=== PATIENT | male | born 1990 | race Caucasian/White ===

== ENCOUNTER 2017-12-28 09:50 | Inpatient (IN) | payer SELFPAY ==
[2017-12-28] VITALS (11 sets, daily range): BP systolic 105–137; BP diastolic 55–78; PULSE 62–86; RESP 14–18; TEMP 36.2–37.4; O2SAT 96–100; BMI 24.4; BMI 27.1
--- NOTE | 2017-12-28 10:24 | RAD_ITS ---
STUDY: X-RAY - RIGHT KNEE REASON FOR EXAM: Male, 27 years old. Laceration injury. TECHNIQUE: 2 view(s) of the knee. COMPARISON: None. FINDINGS: Normal visualized distal femur. Normal visualized proximal tibia and fibula. Normal proximal tibiofibular articulation. Normal medial femorotibial compartment. Normal lateral femorotibial compartment. Normal patellofemoral articulation. There is evidence of a large laceration overlying the proximal medial portion of the tibia. Gas is seen within the medial knee joint as well as within the synovium. Joint effusion. RAD/Knee 1 or 2 Views IMPRESSION: Large laceration with tissue gap along the medial aspect of the proximal tibia. Gas is seen within the knee joint. Joint effusion. No radiopaque foreign body is seen. Electronically Signed: Santi Thomson MD at 10:46 EDT Tel [phone], Service support ,
[2017-12-28] MEDS: Diphth,Pertuss(Acell),Tet Vac 0.5 ML Vial IM (10:34)
[2017-12-28 11:10] LABS: Absolute Lymphocyte Count 1.25 X10^3/ul (0.83-4.51); Absolute Neutrophil Count 3.3 X10^3/uL (2.0-7.7); Basophil# 0.01 X10^3/uL; Basophil% 0.2 % (0-1); Eosinophil# 0.05 X10^3/uL; Hematocrit 42.6 % (40-54); Hemoglobin 14.7 g/dl (13.0-16.5); Lymphocyte # 1.25 X10^3/ul (4.0); Lymphocyte % 24.8 % (19-41); Mean Corp Hgb Conc 34.5 g/gl (32-36); Mean Corpuscular Hgb 29.6 pg (27.0-32.0); Mean Corpuscular Volume 85.9 fL (80-94); Mean Platelet Vol. 10.8 fl (6.2-12.0); Monocyte# 0.45 X10^3/uL; Monocyte% 8.9 % (0-10); Neutrophil # 3.28 X10^3/uL (2.7-7.7); Neutrophil % 64.9 % (47-70); POSITIVE COUNT NO; POSITIVE DIFFERENTIAL NO; POSITIVE MORPHOLOGY NO; Platelet Count 129 K/mm3 (150-450); RBC Distribution Width SD 37.7 fl (35.1-43.9); Red Blood Count 4.96 M/mm3 (4.6-6.2); White Blood Count 5.1 K/mm3 (4.4-11.0)
[2017-12-28 11:16] LABS: International Normalized Ratio 1.1; Prothrombin Time (Protime)PT. 14.6 SECONDS (11.7-14.9)
[2017-12-28 11:17] LABS: Partial Thromboplast Time 26.4 Seconds (24.1-36.2)
--- NOTE | 2017-12-28 11:18 | NURSING ---
DR ALFONSO FOR DR HAGAN
[2017-12-28 11:20] LABS: Anion Gap 8 (5-15); BUN 15 mg/dL (7-18); BUN/Creat Ratio 10.9 RATIO (10-20); Calcium,Total 8.7 mg/dL (8.5-10.1); Chloride 102 mmol/L (98-107); Creatinine, Serum 1.38 mg/dL (0.70-1.30); EST Glomerular Filtration Rate 65 mL/min (>60); Est Glom Filt Rate - Afr Amer 79 mL/min (>60); Estimated Creatinine Clearance 88.25 ml/min; Glucose 100 mg/dL (74-106); Potassium 3.9 mmol/L (3.5-5.1); Sodium Level 140 mmol/L (136-145)
--- NOTE | 2017-12-28 11:40 | ED.VISSUMM ---
- ER Visit Summary Date of Service: 12/28/17 Chief Complaint: Laceration History of Present Illness: The patient is a 27 M who cut his right leg just prior to arrival on a garage door panel. No other injuries or complaints. Unsure of tetanus status. Physical Examination: Patient has a large laceration to his right lower leg just distal and medial to the right knee. This is approximately 20 cm. Subcutaneous tissue was exposed. He is neurovascular intact distally. There is a concern for a knee joint capsule disruption medially. Test Results: X-rays of the knee show gas in the joint space. Emergency Department Course and Treatment: Tetanus was updated. Patient discussed with Dr. Moore and will go to the OR. Labs pending. Ancef ordered, but patient transferred to the OR prior to administration. Treatment Plan: As above Disposition: To operating room Impression: 1. Right leg laceration 20 cm approximately 2. Right knee joint laceration This note was generated with [employer] dictation software. It may contain incorrect words, spelling, and punctuation that were not noted in review of the chart prior to signing ED Disposition - Plan for ED Patient: Chief Complaint: Laceration
--- NOTE | 2017-12-28 11:44 | ED.DCSUM_ITS ---
- ER Visit Summary Date of Service: 12/28/17 Chief Complaint: Laceration History of Present Illness: The patient is a 27 M who cut his right leg just prior to arrival on a garage door panel. No other injuries or complaints. Unsure of tetanus status. Physical Examination: Patient has a large laceration to his right lower leg just distal and medial to the right knee. This is approximately 20 cm. Subcutaneous tissue was exposed. He is neurovascular intact distally. There is a concern for a knee joint capsule disruption medially. Test Results: X-rays of the knee show gas in the joint space. Emergency Department Course and Treatment: Tetanus was updated. Patient discussed with Dr. Moore and will go to the OR. Labs pending. Ancef ordered, but patient transferred to the OR prior to administration. Treatment Plan: As above Disposition: To operating room Impression: 1. Right leg laceration 20 cm approximately 2. Right knee joint laceration This note was generated with [employer] dictation software. It may contain incorrect words, spelling, and punctuation that were not noted in review of the chart prior to signing ED Disposition - Plan for ED Patient: Chief Complaint: Laceration
--- NOTE | 2017-12-28 11:50 | NURSING ---
OR KADEN Rod
[2017-12-28] MEDS: Cefazolin 2 GM in 0.9% Normal Saline 100 ML IV (12:52)
--- NOTE | 2017-12-28 13:03 | PCM.HP.STD ---
Problem List (1) Unspecified injury of left lower leg, initial encounter Status: Acute (2) Laceration of leg not thigh, right Status: Acute Qualifiers: Encounter type: initial encounter Qualified Code(s): S81.811A - Laceration without foreign body, right lower leg, initial encounter History of Present Illness Date of Admission: 12/28/17 The patient is a 27 year old M who tripped over a garage door panel and lacerated proximal medial tibia. Denies numbness, tingling; able to range toes and ankle without difficulty. denies fever, chills, or other constitutional symptoms. tetanus is up to date. did not receive antibiotics in ER as headed to OR for washout now. [] Past Medical History Allergies No Known Allergies Allergy (Verified 12/28/17 09:50) Home Medications: Ambulatory Orders Medication Instructions Recorded NK 12/28/17 Smoking Status: Never smoker Review of Systems Constitutional: Denies: Chills, Fever, Weight Change HEENT: Denies: Head Aches, Sinus Congestion, Sinus Drainage Cardiovascular: Denies: Chest Pain, Palpitations Respiratory: Denies: Cough, Shortness of breath at rest, Sputum production Gastrointestinal: Denies: Abdominal Pain, Nausea, Vomiting Genitourinary: Denies: Dysuria Musculoskeletal: Reports: Leg Pain. Denies: Joint Pain Skin: Denies: Rash, Wounds Neurological: Denies: Numbness, Tingling, Focal weakness Psychiatric: Denies: Anxiety, Depression, Homicidal Ideations, Suicidal Ideations Hematologic/ Lymphatic: Denies: Easy Bruising, Easy Bleeding VTE Information - Inpt Only VTE Present on Admission: Yes VTE Mechan Device Prophylaxis: SCD's VTE Pharm Prophylaxis ordered?: Yes Patient Problems: Active and Suspected Problems Unspecified injury of left lower leg, initial encounter (Acute) Laceration of leg not thigh, right (Acute) - Physical Exam General: Alert, Oriented x3, Cooperative HEENT: Atraumatic, PERRLA, EOMI, Normocephalic Neck: Supple, No JVD, Negative Carotid Bruits Lungs: Clear to auscultation, Normal air movement Cardiovascular: Regular rate, No murmurs Abdomen: Bowel Sounds Present, Soft, Non Tender Extremities: No edema, Capillary Refill Less than 3 Seconds Skin: Skin Tear - 20cm laceration to proximal medial tibia Musculoskeletal: Tenderness Neurological: Cranial nerves II-XII grossly intact Psych/Mental Status: Normal Affect, Appropriate Vital Signs Temp Pulse Resp BP Pulse Ox 97.2 F L 68 16 137/78 H 99 12/28/17 11:53 12/28/17 11:53 12/28/17 11:53 12/28/17 11:53 12/28/17 11:53 Oxygen Delivery Method Room Air Weight: 180 lb Body Mass Index (BMI) 24.4 Laboratory Tests Past 24 Hrs 12/28/17 12/28/17 12/28/17 10:58 10:58 10:58 WBC 5.1 RBC 4.96 Hgb 14.7 Hct 42.6 MCV 85.9 MCH 29.6 MCHC 34.5 RDW 12.0 RDW Differential 37.7 Plt Count 129 L MPV 10.8 Immature Gran % (Auto) 0.200 Neut % (Auto) 64.9 Lymph % (Auto) 24.8 Hamilton % (Auto) 8.9 Eos % (Auto) 1.0 Baso % (Auto) 0.2 Absolute Neuts (auto) 3.3 Absolute Lymphs (auto) 1.25 Total Counted Not Reportable PT 14.6 INR 1.1 APTT 26.4 Sodium 140 Potassium 3.9 Chloride 102 Carbon Dioxide 30.0 Anion Gap 8 BUN 15 Creatinine 1.38 H Estim Creat Clear Calc 88.25 Est GFR (MDRD) Af Amer 79 Est GFR (MDRD) Non-Af 65 BUN/Creatinine Ratio 10.9 Glucose 100 Calcium 8.7 Assessment/Plan All Active Problems Unspecified injury of left lower leg, initial encounter (Acute) Laceration of leg not thigh, right (Acute) right leg laceration with traumatic arthrotomy xrays of right knee show intraarticular air confirming tramatic arthrotomy needs to be taken urgently to OR for washout and antibiotics Reviewed the pre-operative plans with the patient. Risks and benefits of the procedure were fully explained, including but not limited to infection, neurovascular injury, continued pain, arthritis, stiffness, need for further surgery, re-injury, DVT, PE, general risks of anesthesia, and loss of limb or life. The patient understands all the risks and does wish to proceed with written consent.
[2017-12-28] MEDS: Mupirocin Ointment 22gm Tube 1 APPLIC (13:50)
--- NOTE | 2017-12-28 14:17 | DCINST_ITS ---
Discharge Diet: No Restrictions - wbat with brace locked in extension, may open brace and move knee as tolerated when seated, follow up this tuesday in clinic for wound check, take antibiotics as directed, call if increased calf pain, redness, pain or difficulty walking Discharge Activity: May Not Drive May shower in (days): 1 Ice area for (Minutes): 20 - Every hour while awake. Weight Bearing Status: Weight bearing as tolerated Keep extremity elevated above heart level: Operative Extremity Call your doctor if your incision/area has: Continuous Slow Oozing, Sudden Increased Bleeding, Increased Pain/ Swelling, Increased Redness, Foul Smelling Discharge Call your doctor if you observe: Fever of 101 or Higher, Coldness, Increased Pain, Numbness or Tingling, Change in Color, Calf discomfort Allergies/Adverse Reactions: Allergies No Known Allergies Allergy (Verified 12/28/17 09:50) Medications to take at Discharge NK 12/28/17 Test Results: Test results from this visit will be discussed in further detail at your follow- up appointment, if applicable. Please Follow Up With: Tianna Moore, DO - [phone]
--- NOTE | 2017-12-28 14:23 | PCM.OPRPT ---
Problem List (1) Unspecified injury of left lower leg, initial encounter Status: Acute (2) Laceration of leg not thigh, right Status: Acute Qualifiers: Encounter type: initial encounter Qualified Code(s): S81.811A - Laceration without foreign body, right lower leg, initial encounter Report of Operation Date of Procedure: 12/28/17 Pre-Operative Diagnosis: right knee laceration with traumatic arthrotomy Post-Operative Diagnosis: same Surgery/Procedure Performed:: right knee laceration irrigation/debridement, knee intraarticular irrigation/debridement/drainage Type of Anesthesia:: General Anesthesiologist: Ryan Nowak Specimen's removed: tt- 40 mins Drains: yolanda Fluids Replaced: 1000ml lr Description of Procedure: Preoperative note Patient is a 27-year-old male who tripped over a garage panel at home and lacerated his right proximal tibia medially. Patient went to the emergency room they evaluated him orthosis consulted ordered x-rays which shows a traumatic arthrotomy with air in the knee. Decision was made to taken emergently to the operating room for irrigation debridement. Risks benefits alternatives surgery discussed with patient. Risks including but not limited limited to blood loss, blood clot, infection, neurovascular injury, failure procedure, loss of life and loss of limb. Patient is aware like proceed with right knee laceration primary repair versus VAC application intra-articular arthrotomy washout. Please note that we did discuss on the fact that he has good sensory sensation intact he had no motor deficits are noted no weakness no sensory deficits on initial evaluation in the preoperative holding area. Operative note Patient seen and examined preoperative holding area. Right leg was marked. Patie was brought to the operating room placed supine on the operating table. Sign, anesthesia, antibiotics were administered. The right leg was prepped and draped in standard fashion. The leg was then elevated and tourniquet was raised to 50-50 torr. Timeout was performed. We then started with our pulse lavage of the 7 x 15 cm laceration that was in his proximal medial tibia area. We did about 4 L at this area we then moved to arthrotomy of the knee. We began with our standard diagnostic arthrotomy arthroscopy portals. We created an anterior lateral portal under standard technique. We then created an anterior medial portal under direct visualization. While wearing the knee we did see the arthrotomy wound that was capsular just proximal to the medial attachment of the medial meniscus. The meniscus was not lacerated and was intact to the capsule. We then irrigated the knee with about 3 L of saline normal saline. We then moved back to our laceration. We used 3-0 nylon to close the incision came back nicely. After this was done we did leave a small area in the central area aspect of the incision and placed the Yolanda drain. And totally irrigated the knee and the laceration was about 10-11 L of fluid. Sterile dressings were applied tourniquet was deflated for total working time of 40 minutes again sterile dressings were applied and a brace was applied locked in extension during ambulation and okay for flexion extension while seated. Patient transferred to recovery room in stable condition there are no complications Postoperative note Weight-bear as tolerated tolerated right leg Admit for 24 hours of IV antibiotics we will recheck in the a.m. or if not doing well if concern we will keep him for another day of IV antibiotics Did not would like a dirty wound however we will ask the ER if they washed it out in the ER Discussed with We will pull drain tomorrow Call with increased pain numbness tingling or further issues arise Patient admitted to my service for 24 hours of IV antibiotics darwin disclaimer
[2017-12-28] MEDS: 0.9% NaCl Peripheral Flush Adult/Peds IV (21:08)
[2017-12-28] MEDS: Cefazolin 1 GM/50 ML BAG IV (21:08)
[2017-12-28] MEDS: HYDROcodone Bitartrate/Apap 5/325 Tablet PO (21:09)
[2017-12-29 04:24] VITALS: BP 104/65; PULSE 60; RESP 16; TEMP 36.6; O2SAT 99
[2017-12-29] MEDS: Cefazolin 1 GM/50 ML BAG IV (04:32)
--- NOTE | 2017-12-29 09:48 | CASEMGMT ---
Addendum entered by Zheng Viveros 12/29/17 11:36: Per Dr. Moore, script for dressing supplies not needed, will have dressing change tomorrow in her office. Original Note: RN JAZMIN Note: DC Plan- Home Intro role of CM to patient and . Plan is to return home on dc, and with teaching states she can do dressing changes at home. Nurse updated and notified script for any dressing supplies will need to be written by physician and [facility] -Listed as self pay. Pt states they use [facility]. Bills will be submitted after they receive them from hospital -Able to pay for prescriptions (as long as cost is not too high to be prohibitive). -PT/OT evals pending. Erin MARIE RN ACM
[2017-12-29 11:10] VITALS: BP 112/56; PULSE 64; RESP 18; TEMP 36.5; O2SAT 95
--- NOTE | 2017-12-29 11:26 | PCM.DC.SUM ---
Discharge Date and Diagnosis - Problem List Patient Problems: Active and Suspected Problems Unspecified injury of left lower leg, initial encounter (Acute) Laceration of leg not thigh, right (Acute) Date of Admission: 12/28/17 Date of Discharge: 12/29/17 - Primary Discharge Diagnosis Active and Suspected Problems Unspecified injury of left lower leg, initial encounter (Acute) Laceration of leg not thigh, right (Acute) Hospital Course and Treatment Imaging Results: xrays from 12/28 showing intraarticular air from laceration ie) traumatic arthrotomy Operations: - - right lower leg irrigation/debridement/drainage of laceration and right knee irrigation/debridement/drainage Summary of Care Provided: The patient is a 27 year old M who was seen on after he tripped over a garage panel panel and lacerated his right lower leg. He was neuro intact and functional intact at that time however x-rays confirmed a traumatic arthrotomy and patient was taken to the operating room for emergent irrigation debridement of his knee as well as the laceration. Patient tolerated procedure well patient was admitted for IV antibiotics. Uncomplicated stay was able to weight-bear as tolerated. In his right lower leg postop day 1 tolerating p.o.'s. Patient had SCDs placed on his contralateral limb as well and patient able to be weight-bear as tolerated bilateral lower extremity with brace locked in extension. Dressing change and drain was pulled on postop day 1 no erythema no signs of infection. Patient discharged home with pain medication and p.o. antibiotics. Patient will be seen in the office on for dressing change and further evaluation of the incision. [] Discharge Diet: No Restrictions - wbat with brace locked in extension, may open brace and move knee as tolerated when seated, follow up on tuesday in clinic for wound check Discharge Activity: May Not Drive May shower in (days): 1 Ice area for (Minutes): 20 - Every hour while awake. Weight Bearing Status: Weight bearing as tolerated Keep extremity elevated above heart level: Operative Extremity Call your doctor if your incision/area has: Continuous Slow Oozing, Sudden Increased Bleeding, Increased Pain/ Swelling, Increased Redness, Foul Smelling Discharge Call your doctor if you observe: Fever of 101 or Higher, Coldness, Increased Pain, Numbness or Tingling, Change in Color, Calf discomfort Home Medications: Medications to take at Discharge NK 09/26/18 Please Follow Up With: Tianna Moore, DO - [phone] Medical Necessity - Tobacco Use Smoking Status: Never smoker Meaningful Use Info Meaningful Use Diagnoses (Choose all that apply): None applicable
[2017-12-29] MEDS: HYDROcodone Bitartrate/Apap 5/325 Tablet PO (11:30)
--- NOTE | 2017-12-29 12:57 | NURSING ---
reviewed and agree with documentation by Palmira Bernard, student nurse
== END 2017-12-29 12:04 | disposition home or self-care (01) | DRG 502 ==
LOC: ED 11:29 → SDC 11:32 → ACINP 11:38 → MS2 15:34
PROVIDERS: Admitting Provider Orthopaedic Surgery; Emergency Provider Emergency Medicine; Visit Provider Orthopaedic Surgery
PROC: 0SJC4ZZ Inspection of Right Knee Joint, Percutaneous Endoscopic Approach (ICD-10-PCS; CPT 29870; principal; 2017-12-28 07:40)
DX: S83.91XA Sprain of unspecified site of right knee, initial encounter (principal); S81.011A Laceration without foreign body, right knee, initial encounter; W26.8XXA Contact with other sharp object(s), not elsewhere classified, initial encounter; Z23 Encounter for immunization
CPT/HCPCS: 73560; 80048; 85025; 85610; 85730; 90715; 99283; J7030; A4216; J3490

== ENCOUNTER 2021-01-05 03:21 | Emergency (ER) | payer SELFPAY ==
[2021-01-05 03:22] VITALS: BP 134/84; PULSE 82; RESP 16; TEMP 36.3; O2SAT 96; BMI 27.4
--- NOTE | 2021-01-05 03:32 | EX.ED.VIS.UR ---
HPI HPI - URI History of Present Illness Chief Complaint: Other, Pain/Inj Informant: patient Onset/Context/Timing Onset: Weeks Context: Gradual Onset Timing: Intermittent Current Severity: Mild Maximum Severity: Mild Associated Symptoms Associated Symptoms: Positive for Nonproductive cough Narrative Narrative: 30-year-old [facility] male no sniffing past medical history. States for last 1 to 2 weeks he has had intermittent fever and cough both have resolved. He said his cough is gone now. It was nonproductive. He denies being short of breath. He was not vaccinated for Covid. Currently his is 41 weeks is going into labor and he needs a Covid test to be with her in labor and delivery. States he feels well. He is afebrile. Prior similar symptoms: Yes Recent Illness/Hospitalization: No ROS ROS ED ROS Narrative Cough and fever both resolved. Review of Systems ROS Unobtainable: Denies due to encephalopathy Constitutional Constitutional ED: Reports fever(s) Eyes Eyes: Denies change in vision ENT ENT ED: Denies ear pain or sore throat Cardiovascular Cardiovascular: Denies chest pain Respiratory/Chest Respiratory/Chest: Reports cough; Denies dyspnea Gastrointestinal Gastrointestinal: Denies abdominal pain, diarrhea, nausea or vomiting Genitourinary Genitourinary ED: Denies dysuria Musculoskeletal Musculoskeletal: Denies myalgias Integumentary Denies rash Neurologic Neurologic: Denies headache(s) Psychiatric Psychiatric: Denies depression Endocrine Endocrinology: Denies polyuria Hematologic/Lymphatic Hematologic/Lymphatic: Denies easy bruising Allergic/Immunologic Allergic/Immunologic ED: Denies urticaria PFSH PFSH Medical History no medical history no medical history Home Medications NK 01/05/21 [History Last Taken Unknown] Allergy/AdvReac Type Severity Reaction Status Date / Time No Known Allergies Allergy Verified 01/05/21 03:22 Surgical History History of appendectomy History of knee surgery Social History Smoking Status: Never smoker EXAM Physical Exam Narrative Exam Narrative: 30-year-old male no acute distress normal exam. Lungs clear to auscultation bilaterally. Posterior pharynx normal. Vital signs are stable afebrile. Pulse ox 96% on room air. Const Vital Signs: 01/05/21 03:22 01/05/21 03:27 Temperature 97.3 F L Temperature Source Temporal Pulse Rate 82 Respiratory Rate 16 Respiratory Pattern Normal Blood Pressure 134/84 H Blood Pressure Mean 100 Pulse Ox 96 Oxygen Delivery Method Room Air General Appearance ED: Negative for pallor HEENT Reports moist mucous membranes normocephalic and atraumatic; Negative for scalp tenderness Face and Sinus: Negative for facial tenderness External Ear: external ears normal Eyes PERRL and EOMs intact bilaterally Neck no lymphadenopathy, supple, no meningeal signs and no JVD General: Negative for anterior neck swelling Resp normal respiratory effort and clear to auscultation bilaterally Auscultation: Negative for rales, rhonchi or wheezes Cardio S1 normal heart sound, S2 normal heart sound and no murmurs Rate: regular rate Rhythm: regular rhythm GI non-tender, non-distended and no masses Inspection: Negative for abdominal distention Auscultation: normoactive bowel sounds Palpation: soft; Negative for tender or guarding Back/Spine no CVA tenderness Extremity normal to inspection and full ROM General Extremety ED: Negative for cyanosis or tenderness General Extremity: Negative for cyanosis Neuro oriented x3 Sensorium / Orientation: alert, oriented to person, oriented to place and oriented to time Motor Exam: strength 5/5 throughout Psych mental status grossly normal Skin General Skin Exam: Negative for jaundice or pallor Lesions: no lesions Rashes: no rashes MDM MDM MDM Narrative Medical decision making narrative: Young male recent URI symptoms resolved. He will be Covid tested which came back positive so he will not be allowed to go into labor and delivery. Patient stable. His lungs are clear. His pulse ox is 96%. It would not be placed on a medication has had symptoms now for 2 weeks. Lab Data Attestation: I reviewed the patient's lab results. Lab results narrative: Rapid Covid antigen test was positive. Discharge Plan Triage Chief Complaint: Other, Pain/Inj ED Provider: Tom Cuevas Dx/Rx/DC Orders Clinical Impression: COVID-19 Instructions: Human Coronaviruses Prescriptions: No Action NK RF: 0 Primary Care Provider: Care Physician,No Primary Referrals: NOT,DEFINED [NON-STAFF] - Activity Restrictions/Additional Instructions: Follow-up as needed. Your test positive for the coronavirus. Disposition Disposition: Home, Self Care
== END 2021-01-05 04:08 | disposition home or self-care (01) ==
LOC: ED 03:44
PROVIDERS: Emergency Provider Emergency Medicine
DX: U07.1 COVID-19 (principal)
CPT/HCPCS: 87426; 99282